=== PATIENT | male | born 1980 | race Caucasian/White ===

== ENCOUNTER 2024-02-28 16:59 | Emergency (ER) | payer OTHER ==
[~2024-02-28] VITALS: Ht 172.7 cm; Wt 101.2 kg
[2024-02-28 17:08] VITALS: BP_SYST 166; PULSE 95; RESP 18; TEMP 98.1; O2SAT 96
[2024-02-28 17:33] VITALS: BP_SYST 166; PULSE 95; RESP 18; TEMP 98.1; O2SAT 96
== END 2024-02-28 17:31 | disposition home or self-care (01) ==
LOC: SED 16:59
DX: U07.1 COVID-19 (principal); E11.9 Type 2 diabetes mellitus without complications; I10 Essential (primary) hypertension; Z88.1 Allergy status to other antibiotic agents
CPT/HCPCS: 99281